=== PATIENT | female | born 1965 | race Caucasian/White ===

== ENCOUNTER → 2016-03-04 | Outpatient (CLI) | payer MEDICARE, MEDICAID ==
[~2016-03-04] VITALS: Ht 165.1 cm; Wt 56.7 kg
[~2016-03-04] MED LIST: ALBU0.5N NEB; ALBU0.63 IN; ASPI81TA85 PO; BACL10TA2 PO; CYMB60CA3 PO; DICL50TA2 PO; DIVA500T9 PO; DRIS50002 PO; DULO1CAP3 PO; FLUTICASONE; IPRASOL4 IN; LATA1POW OU; LATANOPROST OU; LIDO2GEL8 TOP; LIDOCAINE 2% INJ 100 MG/5 ML SDV (FOR ANES.) As Ordered ONE; LYRI75CA PO; MELO15TA3 PO; MIRA3350 PO; MODA100T13 PO; NORT10CA2 PO; ORPH-8 PO; PANT40TA2 PO; PROA1AER IN; PROA1AER INH; PROPOFOL 500 MG/50 ML VIAL As Ordered ONE; PROV100T4 PO; RANI150T PO; SENN8.6C PO; SYMB16INH INH; Spiriva INH; TIOT18INH INH; TYLE325T5 PO; ULTR50TA PO
--- NOTE | 2016-03-04 13:08 | ROOR ---
Patient Name: Tosha Hernandez Procedure Date: 03/04/2016 12:57 PM Date of : 1965 Age: 51 Room: [facility] Gender: Female Note Status: Finalized Procedure: Upper GI endoscopy Indications: Dysphagia, Heartburn Providers: Tong SIMPSON MD Referring MD: TARSHA CARTER MD Requesting Provider: Medicines: Monitored Anesthesia Care Complications: No immediate complications. Procedure: Pre-Anesthesia Assessment: - The heart rate, respiratory rate, oxygen saturations, blood pressure, adequacy of pulmonary ventilation, and response to care were monitored throughout the procedure. The Endoscope was introduced through the mouth, and advanced to the second part of duodenum. The upper GI endoscopy was accomplished without difficulty. The patient tolerated the procedure well. Findings: The examined esophagus was normal. No endoscopic abnormality was evident in the esophagus to explain the patient's complaint of dysphagia. It was decided, however, to proceed with dilation of the entire esophagus. The scope was withdrawn. Dilation was performed with a Simeon dilator with no resistance at 54 Fr. The dilation site was examined following endoscope reinsertion and showed no change. The entire examined stomach was normal. The examined duodenum was normal. Impression: - Normal esophagus. - No endoscopic esophageal abnormality to explain patient's dysphagia. Esophagus dilated. Dilated. - Normal stomach. - Normal examined duodenum. - No specimens collected. Recommendation: - Observe patient's clinical course. - Continue present medications. Tong Simpson MD Tong SIMPSON MD 03/04/2016 1:08:14 PM This report has been signed electronically. Number of Addenda: 0 Note Initiated On: 03/04/2016 12:57 PM Estimated Blood Loss: Estimated blood loss: none.
--- NOTE | 2016-03-04 13:32 | ROOR ---
Patient Name: Tosha Hernandez Procedure Date: 03/04/2016 12:58 PM Date of : 1965 Age: 51 Room: [facility] Gender: Female Note Status: Finalized Procedure: Colonoscopy Indications: Screening for colorectal malignant neoplasm Providers: Tong SIMPSON MD Referring MD: TARSHA CARTER MD Requesting Provider: Medicines: Monitored Anesthesia Care Complications: No immediate complications. Procedure: Pre-Anesthesia Assessment: - The heart rate, respiratory rate, oxygen saturations, blood pressure, adequacy of pulmonary ventilation, and response to care were monitored throughout the procedure. The Colonoscope was introduced through the anus and advanced to the cecum, identified by appendiceal orifice and ileocecal valve. The colonoscopy was performed without difficulty. The patient tolerated the procedure well. The quality of the bowel preparation was poor. Findings: (Colon Prep was POOR, Inadequate Visualisation) A 10 mm polypoid lesion was found at the appendiceal orifice. The lesion was polypoid. This was biopsied with a cold forceps for histology. There was a small lipoma, in the proximal ascending colon. Biopsies were taken with a cold forceps for histology. The colon is grossly normal without large tumors or obstructing lesions. Unable to perform adequate detail examination. Small lesions may have been missed. Impression: - (Colon Prep was POOR, Inadequate Visualisation) - The colon is grossly normal without large tumors or obstructing lesions. Unable to perform adequate detail examination. - Inverted polypoid appendix at the appendiceal orifice. Biopsied. - Small lipoma in the proximal ascending colon. Biopsied. Recommendation: - Await pathology results. - Repeat colonoscopy at the next available appointment (2-4 months) for surveillance based on pathology results. - My office will call you within the next few days to reschedule a colonoscopy with alternate colon preparation. Tong Simpson MD Tong SIMPSON MD 03/04/2016 1:32:11 PM This report has been signed electronically. Number of Addenda: 0 Note Initiated On: 03/04/2016 12:58 PM Estimated Blood Loss: Estimated blood loss: none.
[2016-03-04 13:50] VITALS: BP 127/84
== END ==
LOC: M OPP 11:02
PROVIDERS: ATTEND Internal Medicine Gastroenterology
DX: Z12.11 Encounter for screening for malignant neoplasm of colon (principal); D12.1 Benign neoplasm of appendix; D17.5 Benign lipomatous neoplasm of intra-abdominal organs; R13.10 Dysphagia, unspecified; J44.9 Chronic obstructive pulmonary disease, unspecified; M79.7 Fibromyalgia; M47.816 Spondylosis without myelopathy or radiculopathy, lumbar region; F17.200 Nicotine dependence, unspecified, uncomplicated; F17.228 Nicotine dependence, chewing tobacco, with other nicotine-induced disorders; Z86.73 Personal history of transient ischemic attack (TIA), and cerebral infarction without residual deficits; Z79.82 Long term (current) use of aspirin; Z79.899 Other long term (current) drug therapy; Z79.51 Long term (current) use of inhaled steroids

== ENCOUNTER → 2016-03-18 | Outpatient (REF) | payer MEDICARE, MEDICAID ==
[~2016-03-18] MED LIST changes: -LIDOCAINE 2% INJ 100 MG/5 ML SDV (FOR ANES.) As Ordered ONE; -PROPOFOL 500 MG/50 ML VIAL As Ordered ONE
== END ==
LOC: M SFHCLERA 11:04
PROVIDERS: ATTEND Family Medicine
DX: Z12.4 Encounter for screening for malignant neoplasm of cervix (principal); Z12.12 Encounter for screening for malignant neoplasm of rectum; Z23 Encounter for immunization
CPT/HCPCS: 87624; 90686; G0008; G0101; G0123; G0463

== ENCOUNTER → 2016-04-22 | Outpatient (CLI) | payer MEDICARE, MEDICAID ==
--- NOTE | 2016-04-24 13:47 | REPMRS ---
Patient History The patient states she had a clinical breast exam in January 2016. Patient is postmenopausal and has history of endometrial cancer at age 25. No known family history of cancer. Digital Mammo Screening Bilat: April 22, 2016 - Exam #: [id number] Bilateral CC and MLO view(s) were taken. Technologist: Sari Johansen, Technologist Prior study comparison: 2015, digital bilateral screening mammo, performed at [facility]. FINDINGS: The breast tissue is extremely dense which could obscure a lesion on mammography. There has been no change in the appearance of the mammogram from the prior studies. There is a moderate amount of very dense residual fibroglandular tissue which is fairly symmetric. There is no interval development of dominant mass, architectural distortion, or clustered microcalcification typical of malignancy. There are scattered, small, benign calcifications of doubtful clinical significance. No significant changes when compared with prior studies. ASSESSMENT: BI-RADS/ACR category 2 mammogram. Benign finding(s). Recommendation Routine screening mammogram in 1 year (for women over age 40). This mammogram was interpreted with the aid of an FDA-approved computer-aided dectection system. A. Negative x-ray reports should not delay biopsy if a dominant or clinically suspicious mass is present. B. Four to eight percent of cancers are not identified by mammography. C. Adenosis and dense breast may obscure an underlying neoplasm. Electronically Signed By: Vinny Stone MD 04/24/16 [id number]
== END ==
LOC: M RAD 12:31
PROVIDERS: ATTEND Family Medicine
DX: Z12.31 Encounter for screening mammogram for malignant neoplasm of breast (principal); Z78.0 Asymptomatic menopausal state; Z85.44 Personal history of malignant neoplasm of other female genital organs; R92.8 Other abnormal and inconclusive findings on diagnostic imaging of breast

== ENCOUNTER 2017-04-09 10:07 | Day surgery (SDC) | payer MEDICARE, MEDICAID ==
[2017-04-09] MEDS ORDERED: PROPOFOL 200 MG/20 ML VIAL As Ordered ×2 (12:17→12:52)
[2017-04-09] MEDS ORDERED: LIDOCAINE 2% INJ 100 MG/5 ML SDV (FOR ANES.) As Ordered (12:17)
== END 2017-04-09 13:40 | disposition home or self-care (01) ==
LOC: M OPP 10:07
DX: Z09 Encounter for follow-up examination after completed treatment for conditions other than malignant neoplasm (principal); D49.0 Neoplasm of unspecified behavior of digestive system; Z86.010 Personal history of colon polyps; D12.5 Benign neoplasm of sigmoid colon; D12.3 Benign neoplasm of transverse colon; Q43.8 Other specified congenital malformations of intestine; K63.89 Other specified diseases of intestine; I10 Essential (primary) hypertension; E78.5 Hyperlipidemia, unspecified; E05.90 Thyrotoxicosis, unspecified without thyrotoxic crisis or storm; R12 Heartburn; K21.9 Gastro-esophageal reflux disease without esophagitis; R06.02 Shortness of breath; M47.892 Other spondylosis, cervical region; M47.896 Other spondylosis, lumbar region; M79.7 Fibromyalgia; F41.9 Anxiety disorder, unspecified; R56.9 Unspecified convulsions; I63.9 Cerebral infarction, unspecified; Z86.73 Personal history of transient ischemic attack (TIA), and cerebral infarction without residual deficits; Z78.0 Asymptomatic menopausal state; J44.9 Chronic obstructive pulmonary disease, unspecified; G47.8 Other sleep disorders; R06.83 Snoring; Z98.1 Arthrodesis status; F17.210 Nicotine dependence, cigarettes, uncomplicated; Z79.82 Long term (current) use of aspirin; Z79.899 Other long term (current) drug therapy; Z80.41 Family history of malignant neoplasm of ovary
CPT/HCPCS: 45385

== ENCOUNTER → 2020-09-11 | Outpatient (CLI) | payer MEDICARE, MEDICAID ==
[~2020-09-11] MED LIST changes: -ASPI81TA85 PO; +ASPI81TA86 PO; +BREO1INH3 INH; +DEPA500T2 PO; -DRIS50002 PO; +DRIS50003 PO; -DULO1CAP3 PO; +DULO1CAP6 PO; +INCR1INH IN; +IPRA0.00 IN; -IPRASOL4 IN; +LIDO2GEL5 TOP; -LIDO2GEL8 TOP; +LINZ290C PO; +NEUR300C PO; -ORPH-8 PO; +ORPH100T2 PO; -PANT40TA2 PO; +PANT40TA29 PO; -PROA1AER IN; -PROA1AER INH; +PROAAER10 IN; +PROAAER10 INH; +PROV100T25 PO; -PROV100T4 PO; +ZYRT10CA PO
--- NOTE | 2020-09-11 12:41 | REP ---
INDICATION: DIAGNOSING LUNG NODULE R91.1. COMPARISON: Comparison is made with CT study of the chest from [facility] dated 18 April 2020. There is also a comparison chest CT study from that facility dated February 21, 2020.. TECHNIQUE: Fifty-two minutes following the intravenous injection of a 8.99 mCi dose of F-18 FDG, three-dimensional PET scintigraphy is acquired from the skull base to the proximal thighs. Triplanar noncontrast CT scanning is acquired through the same anatomic range for attenuation correction, and image registration with scan parameters optimized to minimize radiation exposure to the patient. PET scintigraphy and CT datasets were fused and displayed on a workstation with multiplanar and projection display capability. FINDINGS: Head and neck soft tissues are unremarkable. A granulomatous calcification is visible in the right hilus and another in the right upper lobe the 1.5 cm spiculated lesion identified on chest CT from April 18, 2020 has resolved. This consistent with inflammatory change, in other words pneumonia. There are advanced emphysematous changes again noted in the lung parenchyma. No evidence of pleural effusion is seen. In the right lung apex, today's accompanying CT study demonstrates a small spiculated nodule which was not apparent on the April 18 or the February 21, 2020 prior study. This measures 11 mm in greatest diameter and there is some discernible FDG accumulation within it. Maximum standard uptake value is 1.31. This is not hypermetabolic. Follow-up is advised. No other abnormal hypermetabolic pulmonary parenchymal uptake is seen. No abnormal tangela or mediastinal hypermetabolic uptake is seen in the chest. In the abdomen and pelvis, normal hepatic, splenic, gastrointestinal, and genitourinary FDG accumulation is seen. No abnormal hypermetabolic uptake is appreciated in the abdomen or pelvis. There is a large amount of colonic stool visible. No abnormal skeletal uptake is seen. The patient is status post cervical spine fusion. IMPRESSION: The recently identified "new" right upper lobe nodule has resolved. Today's accompanying CT study demonstrates another new spiculated 1.1 cm nodule with discernible but non hypermetabolic FDG accumulation, 1.31. This was not apparent on the most recent prior CT of April 18, 2020. Continued CT follow-up is advised. This is nonspecific. <Electronically signed by Raul Bishop > 09/11/20 [id number]
== END ==
LOC: M PLARAD 08:23
PROVIDERS: ATTEND Internal Medicine Pulmonary Disease
DX: R91.1 Solitary pulmonary nodule (principal); R91.8 Other nonspecific abnormal finding of lung field
CPT/HCPCS: 78815; A9552

== ENCOUNTER → 2020-11-08 | Outpatient (CLI) | payer MEDICARE, MEDICAID ==
--- NOTE | 2020-11-08 11:56 | REP ---
INDICATION: SOLITARY PULMONARY NODULE, ABN FINDING. COMPARISON: PET-CT 09/11/2020, CT chest 08/01/2020. TECHNIQUE: CT chest performed without the use of intravenous contrast. Sagittal and coronal reconstruction images are performed. FINDINGS: Lungs: A previously noted spiculated density in the right posterior upper lobe has decreased in size, previously 12 x 7 mm, currently 7 x 5 mm. There is a large calcified granuloma in the superior segment of the right lower lobe. There is stable fibro atelectasis in the medial aspect of the right middle lobe inferiorly. There is a tiny calcified granuloma in the right lower lobe. There is mild bilateral interstitial fibrotic change. Moderate bilateral emphysematous change is again noted. There is mild diffuse bronchiectasis. There are mild secretions in the left mainstem bronchus, extending into the very proximal aspect of the left lower lobe bronchus. Mediastinum: No gross adenopathy. Marcia: There are calcified lymph nodes in the right hilum. Axilla: No gross adenopathy. Pleura: No effusion. Heart: Not enlarged. Thoracic aorta: No aneurysm. Upper abdominal structures: Grossly unremarkable. Visualized osseous structures: There are mild degenerative changes of the spine without compression deformity. Metallic plate and screws are seen in the lower cervical spine. IMPRESSION: Resolving spiculated density in the right posterior upper lobe compatible with resolving inflammatory opacity. Evidence of prior granulomatous disease and chronic emphysematous change. <Electronically signed by Cristino Marroquin > 11/08/20 [id number]
== END ==
LOC: M RAD 10:54
PROVIDERS: ATTEND Physician Assistant
DX: R91.1 Solitary pulmonary nodule (principal); R91.8 Other nonspecific abnormal finding of lung field

== ENCOUNTER → 2021-12-27 | Outpatient (CLI) | payer MEDICARE, MEDICAID ==
[~2021-12-27] MED LIST changes: -CYMB60CA3 PO; +CYMB60CA4 PO
== END ==
LOC: M RAD 13:22
PROVIDERS: ATTEND Internal Medicine Pulmonary Disease
DX: Z12.2 Encounter for screening for malignant neoplasm of respiratory organs (principal); F17.218 Nicotine dependence, cigarettes, with other nicotine-induced disorders; R91.8 Other nonspecific abnormal finding of lung field; J47.9 Bronchiectasis, uncomplicated

== ENCOUNTER → 2023-01-20 | Outpatient (CLI) | payer MEDICARE, MEDICAID ==
[~2023-01-20] MED LIST changes: -ORPH100T2 PO; +ORPH100T48 PO
== END ==
LOC: M RAD 13:18
PROVIDERS: ATTEND Internal Medicine Pulmonary Disease
DX: Z12.2 Encounter for screening for malignant neoplasm of respiratory organs (principal); F17.210 Nicotine dependence, cigarettes, uncomplicated

== ENCOUNTER → 2024-03-28 | Outpatient (CLI) | payer MEDICARE, MEDICAID | LOC: M RAD 14:29 | PROVIDERS: ATTEND Internal Medicine Pulmonary Disease | DX: Z12.2 Encounter for screening for malignant neoplasm of respiratory organs (principal); F17.218 Nicotine dependence, cigarettes, with other nicotine-induced disorders ==